=== PATIENT | female | born 1955 | race Caucasian/White ===

== ENCOUNTER 2016-11-07 14:31 | Emergency (ER) | payer OTHER ==
[~2016-11-07] VITALS: Ht 154.9 cm; Wt 85.3 kg
[~2016-11-07 14:31] MED LIST: DICYCLOMINE10 MG PO; FLEXERIL10 MG PO; LEVOTHYROXINE0.1 MG PO; LISINOPRIL5 MG PO; LOPRESSOR25 MG PO; LOVAZA1 GM PO; PLAVIX75 MG PO; PRAVASTATIN SOD40 MG PO; VICODIN1 TAB PO
[2016-11-07] MEDS ORDERED: NAPROSYN500 MG PO (15:15)
== END 2016-11-07 18:09 | disposition home or self-care (01) ==
LOC: ED 14:31
DX: T75.4XXA Electrocution, initial encounter (principal); R03.0 Elevated blood-pressure reading, without diagnosis of hypertension; Z88.1 Allergy status to other antibiotic agents; Z88.8 Allergy status to other drugs, medicaments and biological substances; Z91.040 Latex allergy status; Z91.011 Allergy to milk products; Z79.899 Other long term (current) drug therapy; W86.8XXA Exposure to other electric current, initial encounter

== ENCOUNTER → 2022-06-01 | Outpatient (CLI) | payer MEDICARE, OTHER ==
[~2022-06-01] MED LIST changes: +NAPROSYN500 MG PO
== END | disposition home or self-care (01) ==
LOC: RESCLI 14:40
PROVIDERS: ATTEND Internal Medicine
DX: I10 Essential (primary) hypertension (principal); I20.8 Other forms of angina pectoris; N32.81 Overactive bladder; E78.2 Mixed hyperlipidemia; E55.9 Vitamin D deficiency, unspecified; K21.9 Gastro-esophageal reflux disease without esophagitis; K58.9 Irritable bowel syndrome, unspecified; E03.9 Hypothyroidism, unspecified; Z88.8 Allergy status to other drugs, medicaments and biological substances; Z98.890 Other specified postprocedural states; Z82.49 Family history of ischemic heart disease and other diseases of the circulatory system; Z79.01 Long term (current) use of anticoagulants; Z79.82 Long term (current) use of aspirin; Z87.891 Personal history of nicotine dependence; Z79.899 Other long term (current) drug therapy

== ENCOUNTER → 2023-06-02 | Outpatient (CLI) | payer MEDICARE, OTHER | END | disposition home or self-care (01) | LOC: RESCLI 01:26 | PROVIDERS: ATTEND Internal Medicine | DX: I25.10 Atherosclerotic heart disease of native coronary artery without angina pectoris (principal); I10 Essential (primary) hypertension; N32.81 Overactive bladder; E55.9 Vitamin D deficiency, unspecified; K21.9 Gastro-esophageal reflux disease without esophagitis; E03.9 Hypothyroidism, unspecified; E78.2 Mixed hyperlipidemia; Z88.8 Allergy status to other drugs, medicaments and biological substances; Z98.890 Other specified postprocedural states; Z87.891 Personal history of nicotine dependence; Z79.899 Other long term (current) drug therapy ==